=== PATIENT | female | born 1975 | race Caucasian/White ===

== ENCOUNTER 2018-03-27 20:58 | Emergency (ER) | payer OTHER, BC ==
--- NOTE | 2018-03-27 21:59 | RADIOLOGY REPORT (SQ) ---
EXAM DESCRIPTION: XR CHEST 2 VIEWS COMPLETED DATE/TME: 03/27/2018 00:00 CLINICAL HISTORY: 42 years, Female, cough, chest congestion COMPARISON: None. NUMBER OF VIEWS: 2 TECHNIQUE: Frontal and lateral views of the chest LIMITATIONS: None. FINDINGS: The heart size is normal. Patchy perihilar airspace opacities bilaterally concerning for bilateral pneumonia. Retrocardiac airspace opacity best seen on the lateral view could also reflect pneumonia, however follow-up is recommended. This has a somewhat nodular appearance. Could consider follow-up with CT chest. Tiny right pleural effusion also suggested. IMPRESSION: Perihilar airspace opacities likely reflecting pneumonia. Retrocardiac opacity on the lateral view could also reflect pneumonia. However, nodular appearance is present, consider follow-up with CT copyright 2011 [employer]- All Rights Reserved
[2018-03-27 23:19] LABS: ABSOLUTE LYMPHOCYTES (AUTO) 1.1 10^3/uL (0.5-4.7); ABSOLUTE MONOCYTES (AUTO) 0.6 10^3/uL (0.1-1.4); ABSOLUTE NEUT (AUTO) 11.5 10^3/uL (1.7-8.2); BASOPHILS % (AUTO) 0.1 % (0-2); HEMATOCRIT 37.4 % (36.0-47.0); HEMOGLOBIN 12.8 g/dL (12.0-15.5); LYMPHOCYTES % (AUTO) 8.1 % (13-45); MEAN CORPUSCULAR HEMOGLOBIN 29.4 pg (27.0-33.4); MEAN CORPUSCULAR HGB CONC 34.2 g/dL (32.0-36.0); MEAN CORPUSCULAR VOLUME 86 fl (80-97); MONOCYTES % (AUTO) 4.8 % (3-13); PLATELET COUNT 258 10^3/uL (150-450); RED BLOOD COUNT 4.36 10^6/uL (3.72-5.28); RED CELL DISTRIBUTION WIDTH 12.9 % (11.5-14.0); TOTAL CELLS COUNTED % (AUTO) 100 %; WHITE BLOOD COUNT 13.2 10^3/uL (4.0-10.5)
[2018-03-27 23:32] LABS: ANION GAP 11 (5-19); BLOOD UREA NITROGEN 12 mg/dL (7-20); CALCIUM 8.4 mg/dL (8.4-10.2); CARBON DIOXIDE 26 mmol/L (22-30); CHLORIDE 99 mmol/L (98-107); GLUCOSE 118 mg/dL (75-110); POTASSIUM 3.7 mmol/L (3.6-5.0)
[2018-03-28] MEDS ORDERED: DOXYCYCLINE HYCLATE 100 MG TABLET PO ONE (00:19)
[2018-03-28] MEDS ORDERED: BENZONATATE 100 MG CAPSULE PO ONE (00:20)
--- NOTE | 2018-03-28 00:24 | ER Document Report ---
ED General - General Chief Complaint: Chest Congestion Stated Complaint: CHEST CONGESTION Time Seen by Provider: 03/27/18 23:00 Notes: Patient is a 42-year-old female without chronic medical problems who presents with 5 days of cough, fever, body aches and shortness of breath. Patient reports that she has been getting progressively worse particular over the last 48 hours vomiting her to come to the emergency department. Was formally tested for influenza on Thursday, tested positive and was started on Tamiflu. She states this has not at all improved her symptoms and actually induced vomiting. She notes that she feels somewhat short of breath although denies any exertional intolerance. No chest pain. Notes throbbing, aching, diffuse body discomfort. Has been trying Tylenol and ibuprofen with moderate improvement of the symptoms. Nothing is been noted to worsen her symptoms. Has not yet followed up again with her primary doctor. TRAVEL OUTSIDE OF THE [place] IN LAST 30 DAYS: No Past Medical History - General Information source: Patient - Social History Smoking Status: Never Smoker Frequency of alcohol use: None Drug Abuse: None Lives with: Spouse/Significant other Family History: Reviewed & Not Pertinent Patient has suicidal ideation: No Patient has homicidal ideation: No Renal/ Medical History: Denies: Hx Peritoneal Dialysis Past Surgical History: Reports: Hx Appendectomy Review of Systems - Review of Systems Notes: Constitutional: Positive for fever. HENT: Negative for sore throat. Eyes: Negative for visual changes. Cardiovascular: Negative for chest pain. Respiratory: Positive shortness of breath and cough Gastrointestinal: Negative for abdominal pain, vomiting or diarrhea. Genitourinary: Negative for dysuria. Musculoskeletal: Positive for diffuse musculoskeletal pain Skin: Negative for rash. Neurological: Negative for headaches, weakness or numbness. 10 point ROS negative except as marked above and in HPI. Physical Exam - Vital signs Vitals: Temp Pulse Resp BP Pulse Ox 99.0 F 100 16 105/78 96 03/27/18 22:25 03/27/18 22:25 03/27/18 22:25 03/27/18 22:25 03/27/18 22:25 Interpretation: Normal Notes: PHYSICAL EXAMINATION: GENERAL: Appears unwell but in no acute distress HEAD: Atraumatic, normocephalic. EYES: Pupils equal round and reactive to light, extraocular movements intact, sclera anicteric, conjunctiva are normal. ENT: nares patent, oropharynx clear without exudates. Moderately dry mucous membranes. NECK: Normal range of motion, supple without lymphadenopathy LUNGS: Rhonchorous breath sounds bilaterally. No distress or retractions. HEART: Regular rate and rhythm without murmurs ABDOMEN: Soft, nontender, normoactive bowel sounds. No guarding, no rebound. No masses appreciated. EXTREMITIES: Normal range of motion, no pitting or edema. No cyanosis. NEUROLOGICAL: No focal neurological deficits. Moves all extremities spontaneous ly and on command. PSYCH: Normal mood, normal affect. SKIN: Warm, Dry, normal turgor, no rashes or lesions noted. Course - Re-evaluation Re-evalutation: 03/28/18 00:22 Presentation of a 42-year-old female with persistent cough, fever, diagnosed with influenza 4 days ago presenting with progression of her symptoms. Patient's initial vitals show moderate tachycardia although no significant hypoxemia overt distress. On exam the patient has coarse rales bilaterally worse in the upper lobes. Exam otherwise unremarkable. Patient is not having any nausea or vomiting. Able to tolerate oral intake without difficulty. Laboratories show elevated white blood cell count otherwise unremarkable. Lactate normal. Chest x-ray shows bilateral infiltrates consistent with likely influenza associated pneumonia. Patient has been started on doxycycline for coverage. First dose given here in the emergency department. Tessalon Perles as needed for coughing. Strongly advised that the patient get a flu vaccination in the future. At this time will discharge with return precautions and follow- up recommendations. Verbal discharge instructions given a the bedside and opportunity for questions given. Medication warnings reviewed. Patient is in agreement with this plan and has verbalized understanding of return precautions and the need for primary care follow-up in the next 24-72 hours. - Vital Signs Vital signs: Temp Pulse Resp BP Pulse Ox 97.4 F 87 16 112/65 96 03/28/18 00:34 03/28/18 00:34 03/28/18 00:34 03/28/18 00:34 03/28/18 00:34 - Laboratory Result Diagrams: 03/27/18 23:09 03/27/18 23:09 Laboratory results interpreted by me: 03/27/18 03/27/18 03/27/18 23:09 23:09 23:09 WBC 13.2 H Seg Neutrophils % 87.0 H Lymphocytes % 8.1 L Absolute Neutrophils 11.5 H Sodium 136.0 L Glucose 118 H Lactic Acid 0.6 L - Diagnostic Test Radiology reviewed: Image reviewed, Reports reviewed Radiology results interpreted by me: 03/28/18 00:23 Chest x-ray: Bilateral infiltrates consistent with bilateral pneumonia. Discharge - Discharge Clinical Impression: Shortness of breath, Influenza associated pneumonia Bilateral pneumonia Qualifiers: Pneumonia type: due to unspecified organism Lung location: unspecified part of lung Qualified Code(s): J18.9 - Pneumonia, unspecified organism Condition: Stable Disposition: HOME, SELF-CARE Additional Instructions: You have been diagnosed with a pneumonia. It is very important that you take a ll of your antibiotics until they are gone even if you are feeling better. Please return to the emergency department immediately if you began having worsening shortness of breath, become confused, have worsening pain, pass out, have persistent vomiting that prevents you from being able to drink fluids for more than 12 hours, or have any other symptoms that are worrisome to you. Please follow-up with your primary care doctor in the next 1-2 days. As we discussed, please provide them with a copy of your x-ray report. I would encourage a repeat chest x-ray within 1 week to ensure that all changes noted on chest x-ray today have resolved. A chest CT could be considered if the x-ray shows ongoing changes. Prescriptions: Benzonatate [Tessalon Perles 100 mg Capsule] 100 mg PO Q8HP PRN #40 capsule PRN Reason: Doxycycline Monohydrate 100 mg PO BID #20 capsule Forms: Return to Work
[2018-03-28 00:38] VITALS: BP 112/65
== END 2018-03-28 00:37 | disposition home or self-care (01) ==
LOC: ER 20:58
DX: J18.9 Pneumonia, unspecified organism (principal); J11.1 Influenza due to unidentified influenza virus with other respiratory manifestations; R06.02 Shortness of breath; R05 Cough; R50.9 Fever, unspecified; M79.10 Myalgia, unspecified site; R09.89 Other specified symptoms and signs involving the circulatory and respiratory systems; R00.0 Tachycardia, unspecified
CPT/HCPCS: 36415; 71046; 80048; 83605; 84703; 85025; 99284

== ENCOUNTER → 2018-04-01 | Outpatient (CLI) | payer OTHER, BC ==
--- NOTE | 2018-04-01 17:02 | RADIOLOGY REPORT (SQ) ---
EXAM DESCRIPTION: CHEST PA/LATERAL COMPLETED DATE/TIME: 04/01/2018 4:23 pm REASON FOR STUDY: PNEUMONIA, UNSPECIFIED ORGANISM COMPARISON: 03/27/2018 EXAM PARAMETERS: NUMBER OF VIEWS: two views TECHNIQUE: Digital Frontal and Lateral radiographic views of the chest acquired. RADIATION DOSE: NA LIMITATIONS: none FINDINGS: LUNGS AND PLEURA: Persistent patchy fairly extensive consolidation in the left mid-lower lung zones, suggest infiltrates. The right lung is clear. Very small left pleural effusion. No pne umothorax or pleural effusion. MEDIASTINUM AND HILAR STRUCTURES: No masses or contour abnormalities. HEART AND VASCULAR STRUCTURES: Heart normal size. No evidence for failure. BONES: No acute findings. HARDWARE: None in the chest. OTHER: No other significant finding. IMPRESSION: 1. Persistent patchy fairly extensive consolidation in the left mid-lower lung zones, s uggest infiltrates. COMMENT: 1. The results of this examination were discussed with the provider on 04/01/2018 at 16:50 hours. TECHNICAL DOCUMENTATION: JOB ID: [id number] [employer]- All Rights Reserved Reading location - IP/workstation name: [email or web address]
== END ==
LOC: OD 16:07
PROVIDERS: ATTEND Physician Assistant
DX: J18.9 Pneumonia, unspecified organism (principal)
CPT/HCPCS: 71046